=== PATIENT | female | born 2000 | race Hispanic/Latino ===

== ENCOUNTER 2019-09-06 17:43 | Emergency (ER) | payer OTHER ==
[~2019-09-06] VITALS: Ht 149.9 cm; Wt 59.6 kg
[2019-09-06 19:29] VITALS: BP 118/75
== END 2019-09-06 19:33 | disposition home or self-care (01) ==
LOC: M ED 17:43
DX: S30.810A Abrasion of lower back and pelvis, initial encounter (principal); X58.XXXA Exposure to other specified factors, initial encounter; Y92.89 Other specified places as the place of occurrence of the external cause

== ENCOUNTER 2019-11-06 20:45 | Emergency (ER) | payer OTHER ==
[~2019-11-06] VITALS: Ht 149.9 cm; Wt 59.3 kg
[2019-11-06] MEDS ORDERED: CETI10CA13 PO (20:51)
[2019-11-06] MEDS ORDERED: MAGIC MOUTHWASH SUSPENSION BTL SS STA (22:21)
[2019-11-06] MEDS ORDERED: ALBUTEROL 90 MCG/ACT 8GM HFA INHALER INH ONE (22:30)
[2019-11-06] MEDS ORDERED: ONDANSETRON 4 MG ORAL DISINTEGRATING TAB PO ONE (22:30)
[2019-11-06] MEDS ORDERED: IBUPROFEN 600MG TAB PO ONE (22:30)
[2019-11-06 23:07] LABS: BASO # 0.1 10^3/uL (0.0-0.2); BASO % 0.5 % (0.0-1.0); EOS % 6.5 % (0.0-3.0); HEMATOCRIT 42.6 % (36.0-47.0); HEMOGLOBIN 15.2 g/dl (12.0-15.5); LYMPH # 3.3 10^3/uL (1.5-5.0); LYMPH % 21.4 % (24.0-44.0); MEAN CORPUSCULAR HEMOGLOBIN 30.5 pg (27.0-33.0); MEAN CORPUSCULAR HGB CONC 35.7 g/dl (32.0-36.5); MEAN CORPUSCULAR VOLUME 85.4 fl (80.0-96.0); MONO # 1.5 10^3/uL (0.0-0.8); MONO % 9.6 % (0.0-5.0); NEUTROPHILS # 9.5 10^3/uL (1.5-8.5); NEUTROPHILS % 61.7 % (36.0-66.0); PLATELET COUNT, AUTOMATED 345 10^3/uL (150-450); RED BLOOD COUNT 4.99 10^6/uL (4.00-5.40); WHITE BLOOD COUNT 15.4 10^3/uL (4.0-10.0)
[2019-11-07] MEDS ORDERED: PROAAER10 INH (00:44)
[2019-11-07] MEDS ORDERED: PSEU120T19 PO (00:44)
[2019-11-07 00:52] VITALS: BP 122/75
--- NOTE | 2019-11-14 11:20 | REP ---
PORTABLE CHEST X-RAY: HISTORY: Cough. FINDINGS: The mediastinum and cardiac silhouette are normal. Lung mayer are clear. No focal consolidation, effusion or pneumothorax. Skeletal structures are intact. IMPRESSION: Normal portable chest x-ray. MTDD
== END 2019-11-07 00:55 | disposition home or self-care (01) ==
LOC: M ED 20:45
DX: D72.829 Elevated white blood cell count, unspecified (principal); R05 Cough; R06.02 Shortness of breath; J02.9 Acute pharyngitis, unspecified; R09.81 Nasal congestion
CPT/HCPCS: 36415; 71045; 85025; 87880; 99284; Q0162; U0002